=== PATIENT | female | born 1985 | race American Indian/Alaskan Native ===

== ENCOUNTER 2020-06-15 17:52 | Emergency (ER) | payer OTHER ==
[2020-06-15] MEDS ORDERED: CYCLOBENZAPRINE 10 MG TAB PO ONE (18:56)
[2020-06-15] MEDS ORDERED: IBUPROFEN 600 MG TAB PO ONE (18:56)
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
[2020-06-15 21:31] VITALS: BP 140/85
== END 2020-06-15 21:33 | disposition home or self-care (01) ==
LOC: ED 17:52
DX: T30.0 Burn of unspecified body region, unspecified degree (principal); R07.89 Other chest pain; M79.645 Pain in left finger(s); M79.651 Pain in right thigh; Z79.899 Other long term (current) drug therapy; V49.69XA Unspecified car occupant injured in collision with other motor vehicles in traffic accident, initial encounter; W22.10XA Striking against or struck by unspecified automobile airbag, initial encounter; Y93.89 Activity, other specified; Y92.410 Unspecified street and highway as the place of occurrence of the external cause; Y99.8 Other external cause status
CPT/HCPCS: 71046